=== PATIENT | female | born 1975 ===

== ENCOUNTER 2022-02-19 11:44 | Outpatient (REF) | payer BC, SELFPAY | END 2022-02-19 11:45 | disposition home or self-care (01) | LOC: NCHCN 11:44 | PROVIDERS: Visit Provider Nurse Practitioner Family | DX: R31.9 Hematuria, unspecified (principal) | CPT/HCPCS: 87086 ==

== ENCOUNTER 2023-08-05 18:28 | Outpatient (REF) | payer BC, SELFPAY ==
[2023-08-05 14:29] LABS: HCT 48.7 % (36.0-46.0); HGB 15.8 g/dL (11.2-15.7); MCH 28.6 pg (27.0-33.0); MCHC 32.4 % (32.0-36.0); MCV 88 fL (80-95); Platelet Count 371 10^3/uL (130-400); RBC 5.52 10^6/uL (3.93-5.22); RDW 13.3 % (11.7-14.6); RDW-SD 43.1 fL; WBC 7.12 10^3/uL (4.4-10.8)
[2023-08-05 14:56] LABS: ALT 24 U/L (14-59); AST 17 U/L (15-37); Alkaline Phosphatase 81 U/L (46-116); Anion Gap 11.7 mmol/L (3-11); BUN 10 mg/dL (7-18); Bilirubin, Total 0.3 mg/dL (0.2-1.0); CO2 24.3 mmol/L (21.0-32.0); CREATININE 0.8 mg/dL (0.55-1.02); Calcium 9.3 mg/dL (8.5-10.1); Chloride 105 mmol/L (98-107); Estimated GFR 89.71 (mL/min/1.73m2); Glucose 100 mg/dL (74-106); Potassium 4.1 mmol/L (3.5-5.1); Sodium 141 mmol/L (136-145); Total Protein 8.1 g/dL (6.4-8.2)
== END 2023-08-05 18:29 | disposition home or self-care (01) ==
LOC: NCHCN 18:28
PROVIDERS: Visit Provider Family Medicine
DX: R10.9 Unspecified abdominal pain (principal)
CPT/HCPCS: 80053; 85027